=== PATIENT | female | born 1950 ===

== ENCOUNTER → 2024-10-17 | Outpatient (CLI) | payer MEDICARE, OTHER ==
[2024-10-17 14:48] LABS: BASOPHILS ABSOLUTE AUTO 0.02 K/mm3 (0.00-0.23); BASOPHILS PERCENT AUTO 0 % (0-2); EOSINOPHILS ABSOLUTE AUTO 0.07 K/mm3 (0.00-0.68); EOSINOPHILS PERCENT AUTO 1 % (0-6); Hematocrit 45.8 % (33.0-51.0); Hemoglobin 15.4 g/dL (11.5-16.0); IMMATURE GRAN ABSOLUTE AUTO 0.02 K/mm3 (0.00-0.10); IMMATURE GRAN PERCENT AUTO 0 % (0-1); LYMPHOCYTES ABSOLUTE AUTO 0.47 K/mm3 (0.84-5.20); LYMPHOCYTES PERCENT AUTO 9 % (21-46); MONOCYTES ABSOLUTE AUTO 0.52 K/mm3 (0.16-1.47); MONOCYTES PERCENT AUTO 10 % (4-13); Mean Corpuscular HGB 30.9 pg (26.0-34.0); Mean Corpuscular HGB Conc 33.6 g/dL (31.5-36.5); Mean Corpuscular Volume 92 fL (80-100); Mean Platelet Volume 8.9 fL (9.1-12.4); NEUTROPHILS PERCENT AUTO 79 % (41-73); Platelet Count 320 K/mm3 (150-400); RDW Coefficient Variation 13.7 % (11.7-14.2); RDW Standard Deviation 45.9 fL (35.1-46.3); Red Blood Cell Count 4.98 M/mm3 (3.80-5.20)
[2024-10-17 14:57] LABS: Albumin, Blood 3.1 g/dL (3.4-5.0); Albumin/Globulin Ratio 0.8 (0.8-1.8); Bilirubin, Total 1.1 mg/dL (0.1-1.0); Bun/Creatinine Ratio 15.7 (12.0-20.0); Creatinine, Blood 0.51 mg/dL (0.40-1.00); Globulin, Blood 4.1 g/dL (2.2-4.0); Potassium, Blood 4.3 mmol/L (3.5-5.5); Total Protein, Blood 7.2 g/dL (6.4-8.2)
== END ==
LOC: LAB SHORT 14:43 → LAB 14:43
PROVIDERS: Chiropractor
DX: R11.2 Nausea with vomiting, unspecified (principal)
CPT/HCPCS: 80053; 83880; 85025

== ENCOUNTER 2025-08-16 13:38 | Emergency (ER) | payer MEDICARE, OTHER ==
[~2025-08-16] VITALS: Ht 170.2 cm; Wt 113.4 kg
[~2025-08-16 13:38] MED LIST: EUTHYROX125 MC1 PO; FUROSEMIDE20 MG PO; HYDROCODONE-AC1 EA19 PO; K-Dur10 MEQ; POTASSIUM CL ER 20 M
[2025-08-16] MEDS ORDERED: Ondansetron HCl 2 MG / ML 2ML Vial IV ONE (14:15)
[2025-08-16] MEDS ORDERED: NS 1,000 ML IV SCH (14:15)
[2025-08-16 14:33] LABS: BASOPHILS ABSOLUTE AUTO 0.03 K/mm3 (0.00-0.23); BASOPHILS PERCENT AUTO 0 % (0-2); EOSINOPHILS ABSOLUTE AUTO 0.08 K/mm3 (0.00-0.68); EOSINOPHILS PERCENT AUTO 1 % (0-6); Hematocrit 42.5 % (33.0-51.0); Hemoglobin 14.6 g/dL (11.5-16.0); IMMATURE GRAN ABSOLUTE AUTO 0.01 K/mm3 (0.00-0.10); IMMATURE GRAN PERCENT AUTO 0 % (0-1); LYMPHOCYTES ABSOLUTE AUTO 1.06 K/mm3 (0.84-5.20); LYMPHOCYTES PERCENT AUTO 13 % (21-46); MONOCYTES ABSOLUTE AUTO 0.79 K/mm3 (0.16-1.47); MONOCYTES PERCENT AUTO 10 % (4-13); Mean Corpuscular HGB Conc 34.4 g/dL (31.5-36.5); Mean Corpuscular Volume 96 fL (80-100); NEUTROPHILS ABSOLUTE AUTO 6.03 K/mm3 (1.96-9.15); NEUTROPHILS PERCENT AUTO 75 % (41-73); NRBC ABSOLUTE 0.00 K/mm3 (0.00-0.02); NRBC Auto 0.0 /100 WBC (0.0-0.2); Platelet Count 369 K/mm3 (150-400); RDW Coefficient Variation 13.3 % (11.7-14.2); RDW Standard Deviation 47.1 fL (35.1-46.3)
[2025-08-16 14:54] LABS: Alanine Aminotransfer (ALT/SGP 21.0 U/L (12-78); Albumin, Blood 2.4 g/dL (3.4-5.0); Albumin/Globulin Ratio 0.6 (0.8-1.8); Anion Gap 10.0 mmol/L (3-11); Aspartate Aminotrans (AST/SGOT 27.0 U/L (12-37); Bilirubin, Total 1.1 mg/dL (0.1-1.0); Blood Urea Nitrogen 12.0 mg/dL (8-24); CO2, Blood 25.0 mmol/L (21-32); Calcium, Blood 8.7 mg/dL (8.5-10.1); Chloride, Blood 106.0 mmol/L (98-108); Creatinine, Blood 0.44 mg/dL (0.40-1.00); Globulin, Blood 3.8 g/dL (2.2-4.0); Glucose, Blood 89.0 mg/dL (70-99); Potassium, Blood 4.5 mmol/L (3.5-5.5); Sodium, Blood 136.0 mmol/L (136-145); Total Protein, Blood 6.2 g/dL (6.4-8.2)
[2025-08-16 15:09] LABS: Influenza A, PCR NEGATIVE (NEGATIVE); Influenza B, PCR NEGATIVE (NEGATIVE); Resp Syncytial Virus, PCR NEGATIVE (NEGATIVE); SARS-Cov-2 (COVID-19) PCR, MMC NEGATIVE (NEGATIVE)
[2025-08-16] MEDS ORDERED: CEPH500 PO (16:30)
[2025-08-16] MEDS ORDERED: ONDA4ODT MM (16:30)
== END 2025-08-16 17:08 | disposition home or self-care (01) ==
LOC: ER 13:38
PROVIDERS: Physician Assistant
DX: A08.4 Viral intestinal infection, unspecified (principal); L03.116 Cellulitis of left lower limb; E86.0 Dehydration; Z59.89 Other problems related to housing and economic circumstances; Z88.8 Allergy status to other drugs, medicaments and biological substances; Z79.899 Other long term (current) drug therapy; Z79.2 Long term (current) use of antibiotics
CPT/HCPCS: 71046; 80053; 85025; 87637; 96361; 96374; 99284-25; J2405; J7030

== ENCOUNTER 2025-08-24 16:24 | Emergency (ER) | payer MEDICARE, OTHER ==
[~2025-08-24] VITALS: Ht 170.2 cm; Wt 118.4 kg
[~2025-08-24 16:24] MED LIST changes: +CEPH500 PO; +ONDA4ODT MM
== END 2025-08-24 22:14 | disposition home or self-care (01) ==
LOC: ER 16:24
DX: M25.561 Pain in right knee (principal); M25.562 Pain in left knee; M25.512 Pain in left shoulder; M25.552 Pain in left hip; Z91.81 History of falling; Z88.1 Allergy status to other antibiotic agents; Z88.5 Allergy status to narcotic agent; Z88.8 Allergy status to other drugs, medicaments and biological substances; Z79.890 Hormone replacement therapy; Z79.899 Other long term (current) drug therapy
CPT/HCPCS: 70450; 71045; 73080; 73502; 73560-LT; 73560-RT; 99284-25

== ENCOUNTER 2025-09-12 10:33 | Inpatient (IN) | payer MEDICARE, OTHER ==
[~2025-09-12] VITALS: Ht 170.2 cm; Wt 119.0 kg
[2025-09-12] MEDS ORDERED: ALEN70 PO (11:14)
[2025-09-12] MEDS ORDERED: ALBU90OI INH (11:14)
[2025-09-12] MEDS ORDERED: LIDO700A20 TOP (11:16)
[2025-09-12 11:21] LABS: BASOPHILS ABSOLUTE AUTO 0.05 K/mm3 (0.00-0.23); BASOPHILS PERCENT AUTO 1 % (0-2); EOSINOPHILS ABSOLUTE AUTO 0.23 K/mm3 (0.00-0.68); EOSINOPHILS PERCENT AUTO 5 % (0-6); Hematocrit 43.7 % (33.0-51.0); Hemoglobin 14.5 g/dL (11.5-16.0); IMMATURE GRAN ABSOLUTE AUTO 0.01 K/mm3 (0.00-0.10); IMMATURE GRAN PERCENT AUTO 0 % (0-1); LYMPHOCYTES ABSOLUTE AUTO 1.06 K/mm3 (0.84-5.20); LYMPHOCYTES PERCENT AUTO 21 % (21-46); MONOCYTES ABSOLUTE AUTO 0.59 K/mm3 (0.16-1.47); MONOCYTES PERCENT AUTO 12 % (4-13); Mean Corpuscular HGB Conc 33.2 g/dL (31.5-36.5); Mean Corpuscular Volume 97 fL (80-100); NEUTROPHILS ABSOLUTE AUTO 3.16 K/mm3 (1.96-9.15); NEUTROPHILS PERCENT AUTO 62 % (41-73); NRBC ABSOLUTE 0.00 K/mm3 (0.00-0.02); NRBC Auto 0.0 /100 WBC (0.0-0.2); Platelet Count 317 K/mm3 (150-400); RDW Coefficient Variation 14.6 % (11.7-14.2); RDW Standard Deviation 52.0 fL (35.1-46.3)
[2025-09-12 11:28] LABS: Alanine Aminotransfer (ALT/SGP 27.0 U/L (12-78); Albumin, Blood 2.9 g/dL (3.4-5.0); Albumin/Globulin Ratio 0.9 (0.8-1.8); Anion Gap 9.0 mmol/L (3-11); Aspartate Aminotrans (AST/SGOT 33.0 U/L (12-37); Bilirubin, Total 1.0 mg/dL (0.1-1.0); Blood Urea Nitrogen 17.0 mg/dL (8-24); CO2, Blood 23.0 mmol/L (21-32); Calcium, Blood 8.6 mg/dL (8.5-10.1); Chloride, Blood 113.0 mmol/L (98-108); Creatinine, Blood 0.48 mg/dL (0.40-1.00); Globulin, Blood 3.4 g/dL (2.2-4.0); Glucose, Blood 85.0 mg/dL (70-99); Potassium, Blood 4.1 mmol/L (3.5-5.5); Sodium, Blood 141.0 mmol/L (136-145); Total Protein, Blood 6.3 g/dL (6.4-8.2)
[2025-09-12] MEDS ORDERED: Ondansetron HCl 2 MG / ML 2ML Vial IV PRN (13:30)
[2025-09-12] MEDS ORDERED: FLU VACC TS2025(65UP)/MF59C/PF 45 MCG/0.5 ML SYRINGE IM SCH (13:30)
[2025-09-12 14:16] LABS: CHOL/HDL RATIO 2.1; Cholesterol 148 mg/dL (50-200); HDL Cholesterol 70 mg/dL (>39); LDL/HDL RATIO 0.9; Low Density Lipoprotein Chol 64 mg/dL (0-110); Triglycerides 71 mg/dL (30-160); Very Low Density Lipoprot Chol 14 mg/dL (6-32)
[2025-09-12 14:18] LABS: Anti-Xa UFH, PHA Monitoring <0.10 IU/mL; Prothrombin Time Results 11.3 Sec (9.7-11.5)
[2025-09-12] MEDS ORDERED: Dose Adjust by Pharmacy XX STA (14:26)
[2025-09-12] MEDS ORDERED: Heparin Sodium 5000 Units/ML 1ML MDV IV ONE (14:30)
[2025-09-12] MEDS ORDERED: Heparin Sodium,Porcine/0.5 NS 500 ML IV SCH (14:30)
[2025-09-12] MEDS ORDERED: Albuterol HFA200 ACT/6.7 GM INH INH PRN (14:40)
[2025-09-12 15:18] VITALS: BP 132/91
--- NOTE | 2025-09-12 15:18 | NUR ---
ARRIVAL TO PCU patient arrived to pcu at 1510 and transfered from [facility] to pcu bed via one person missy barillas. patient is alert and oriented x4. pateint reports numbness and tingling in lower extremities. patient denies pain or chest pain/pressure or shortness of breath. patient lung sounds clear throughout. patient has +4 weeping edema in lower leg with open blister on the back of the leg. patient has +4 edema in right lower leg with blosed blisters. see admit shift assessment for further detials. home med rec complete.
[2025-09-12] MEDS ORDERED: Triamcinolone A15 G3 TOP (15:38)
[2025-09-12] MEDS ORDERED: ZINC OXIDE57 GM TOP (15:38)
--- NOTE | 2025-09-12 16:08 | NUR ---
MD IN ROOM Md Colon, printing estimator, in room to discuss plan of care with patient. the plan is to await the next trop lab and if it is similar or around the last one to turn the heparin drip off. patient is to be npo at midnight and until after the echo has been done to determine if patient needs angio or not. patient verbalized understanding.
[2025-09-12 20:04] VITALS: BP 111/59
[2025-09-12] MEDS ORDERED: Clarify Drug Order XX ONE (23:10)
[2025-09-13] VITALS (7 sets, daily range): BP systolic 100–134; BP diastolic 45–64
--- NOTE | 2025-09-13 00:49 | NUR ---
PATIENT RESTING COMFORTABLY ON RIGHT SIDE, TROPONIN TRENDING DOWN WITH VALUE OF 1499, DENIES CHEST PAIN AT CURRENT TIME. NPO AT MIDNIGHT, VERBALIZED UNDERSTANDING, ANTI XA RESULTED AT 0.47 NEW ORDER TO CONTINUE HEPARIN DRIP AT CURRENT RATE OF 25.2. HOME CPAP ORDER OBTAINED NOTIFIE RT. PATIENT BELIEVE SHE WILL DEFINITELY NEED IT AFTER THE ANGIOGRAM TOMORROW. WILL CONTINUE TO MONITOR.
--- NOTE | 2025-09-13 03:55 | NUR ---
PATIENT ADMITTED FOR SHORTNESS OF BREATH AND NSTEMI, LUNGS CLEAR, USES CPAP AT NIGHT, VERY COMPLIANT WITH IT, ALERT AND ORIENTED, CHEST PAIN THROUGH OUT THE NIGHT ON THE LEFT SIDE, BELIEVES IT WAS HE WAY SHE WAS LAYING, TROPONIN TRENDING DOWN, HEPARIN DRIP INFUSING PER ORDERS, ANTI Xa MONITORED PER PROTOCOL,NPO SINCE MIDNIGHT, EDEMA TO BILATERAL LOWER EXTERMITIES, EDUCATED TO CALL FOR NEEDS, VERBALIZED UNDERSTANDING, CALL LIGHT IN REACH, BED IN LOW AND LOCKED POSITION. WILL CONTINUE TO MONITOR
[2025-09-13 04:42] LABS: BASOPHILS ABSOLUTE AUTO 0.04 K/mm3 (0.00-0.23); BASOPHILS PERCENT AUTO 1 % (0-2); EOSINOPHILS ABSOLUTE AUTO 0.39 K/mm3 (0.00-0.68); EOSINOPHILS PERCENT AUTO 8 % (0-6); Hematocrit 39.9 % (33.0-51.0); Hemoglobin 13.2 g/dL (11.5-16.0); IMMATURE GRAN ABSOLUTE AUTO 0.01 K/mm3 (0.00-0.10); IMMATURE GRAN PERCENT AUTO 0 % (0-1); LYMPHOCYTES ABSOLUTE AUTO 1.26 K/mm3 (0.84-5.20); LYMPHOCYTES PERCENT AUTO 25 % (21-46); MONOCYTES ABSOLUTE AUTO 0.66 K/mm3 (0.16-1.47); MONOCYTES PERCENT AUTO 13 % (4-13); Mean Corpuscular HGB Conc 33.1 g/dL (31.5-36.5); Mean Corpuscular Volume 98 fL (80-100); NEUTROPHILS ABSOLUTE AUTO 2.65 K/mm3 (1.96-9.15); NEUTROPHILS PERCENT AUTO 53 % (41-73); NRBC ABSOLUTE 0.00 K/mm3 (0.00-0.02); NRBC Auto 0.0 /100 WBC (0.0-0.2); Platelet Count 281 K/mm3 (150-400); RDW Coefficient Variation 14.6 % (11.7-14.2); RDW Standard Deviation 52.5 fL (35.1-46.3)
[2025-09-13 05:03] LABS: Alanine Aminotransfer (ALT/SGP 22.0 U/L (12-78); Albumin, Blood 2.5 g/dL (3.4-5.0); Albumin/Globulin Ratio 0.9 (0.8-1.8); Anion Gap 7.0 mmol/L (3-11); Aspartate Aminotrans (AST/SGOT 24.0 U/L (12-37); Bilirubin, Total 1.2 mg/dL (0.1-1.0); Blood Urea Nitrogen 13.0 mg/dL (8-24); CO2, Blood 25.0 mmol/L (21-32); Calcium, Blood 8.4 mg/dL (8.5-10.1); Chloride, Blood 112.0 mmol/L (98-108); Creatinine, Blood 0.43 mg/dL (0.40-1.00); Globulin, Blood 2.9 g/dL (2.2-4.0); Glucose, Blood 91.0 mg/dL (70-99); Potassium, Blood 3.8 mmol/L (3.5-5.5); Sodium, Blood 140.0 mmol/L (136-145); Total Protein, Blood 5.4 g/dL (6.4-8.2)
[2025-09-13] MEDS ORDERED: Clarify Drug Order XX ONE (05:45)
--- NOTE | 2025-09-13 10:04 | NUR ---
am note this rn assumed care at 0700. vital signs stable. tele sinus rhythm. spo2 >90% on room air. patient is alert and oriented x4. neuro is intact. perrla. patient is able to make needs known and uses call light appropriately. patient reports generalized pain, and rated at 8 on numberic scale. this rn called md rodriguez and orders placed for tyelnol. patient received oral tyelnol for pain relief. patient denies chest pain/pressure or shortness of breath. patient lung sounds clear throughout. patient is able to use the bedside comode with one person assist. heparin drip is infusing per emar, see emar. see shift assessment for further detials. echo in room this am. md sheikh, cocoa bean roaster, in to see patient around 0935. md sheikh plan is to medical manage the patient at this time, review echo results, start plavix 75mg daily, and for heparin drip to run for 48 hours and then to be stopped. pharmacy notified and a nurse notification is in as well.
[2025-09-13 11:37] LABS: Magnesium, Blood 2.0 mg/dL (1.6-2.4); Thyroid Stimulating Hormone 1.12 uIU/mL (0.360-4.800)
--- NOTE | 2025-09-13 17:04 | NUR ---
shift summary see previous notes. vital signs remain stable. no acute changes this shift
[2025-09-14] MEDS ORDERED: HYDROcodone 5-APAP 325 TAB PO PRN (02:10)
[2025-09-14 04:01] VITALS: BP 111/73
[2025-09-14 04:05] LABS: BASOPHILS ABSOLUTE AUTO 0.04 K/mm3 (0.00-0.23); BASOPHILS PERCENT AUTO 1 % (0-2); EOSINOPHILS ABSOLUTE AUTO 0.36 K/mm3 (0.00-0.68); EOSINOPHILS PERCENT AUTO 8 % (0-6); Hematocrit 39.8 % (33.0-51.0); Hemoglobin 13.2 g/dL (11.5-16.0); IMMATURE GRAN ABSOLUTE AUTO 0.01 K/mm3 (0.00-0.10); IMMATURE GRAN PERCENT AUTO 0 % (0-1); LYMPHOCYTES ABSOLUTE AUTO 1.46 K/mm3 (0.84-5.20); LYMPHOCYTES PERCENT AUTO 30 % (21-46); MONOCYTES ABSOLUTE AUTO 0.68 K/mm3 (0.16-1.47); MONOCYTES PERCENT AUTO 14 % (4-13); Mean Corpuscular HGB Conc 33.2 g/dL (31.5-36.5); Mean Corpuscular Volume 97 fL (80-100); NEUTROPHILS ABSOLUTE AUTO 2.25 K/mm3 (1.96-9.15); NEUTROPHILS PERCENT AUTO 47 % (41-73); NRBC ABSOLUTE 0.00 K/mm3 (0.00-0.02); NRBC Auto 0.0 /100 WBC (0.0-0.2); Platelet Count 276 K/mm3 (150-400); RDW Coefficient Variation 14.6 % (11.7-14.2); RDW Standard Deviation 51.9 fL (35.1-46.3)
[2025-09-14 04:26] LABS: Anion Gap 9.0 mmol/L (3-11); Blood Urea Nitrogen 15.0 mg/dL (8-24); CO2, Blood 25.0 mmol/L (21-32); Calcium, Blood 8.5 mg/dL (8.5-10.1); Chloride, Blood 108.0 mmol/L (98-108); Creatinine, Blood 0.54 mg/dL (0.40-1.00); Glucose, Blood 100.0 mg/dL (70-99); Potassium, Blood 3.7 mmol/L (3.5-5.5); Sodium, Blood 138.0 mmol/L (136-145)
--- NOTE | 2025-09-14 05:57 | NUR ---
SHIFT SUMMARY Pt remains on heparin gtt for NSTEMI. C/o neck and head pain d/t arthritis and recent fall - given norco. BLE edema, improved overnight. Purewick overnight as pt's right knee also hurts d/t recent fall. Blisters/redness/eczema on BLE. No chest pain. SB-SR. BP stable.
[2025-09-14] MEDS ORDERED: Clarify Drug Order XX ONE (06:10)
[2025-09-14 08:38] VITALS: BP 123/71
[2025-09-14 11:47] VITALS: BP 136/64
[2025-09-14 16:11] VITALS: BP 120/50
[2025-09-14] MEDS ORDERED: ASPI81CH PO (17:22)
[2025-09-14] MEDS ORDERED: ATOR20 PO (17:22)
[2025-09-14] MEDS ORDERED: CLOP75 PO (17:23)
== END 2025-09-14 19:48 | disposition home health service (06) | DRG 280 ==
LOC: ER 10:33 → PCU 10:34
PROVIDERS: Family Medicine; Student in an Organized Health Care Education/Training Program; ADMIT Internal Medicine
PROC: B24BZZZ Ultrasonography of Heart with Aorta (ICD-10-PCS; principal; 2025-09-13)
DX: I21.4 Non-ST elevation (NSTEMI) myocardial infarction (principal); I50.31 Acute diastolic (congestive) heart failure; I47.19 Other supraventricular tachycardia; E03.9 Hypothyroidism, unspecified; G47.33 Obstructive sleep apnea (adult) (pediatric); M79.7 Fibromyalgia; D86.0 Sarcoidosis of lung; I48.0 Paroxysmal atrial fibrillation; M81.0 Age-related osteoporosis without current pathological fracture; R79.1 Abnormal coagulation profile; I11.0 Hypertensive heart disease with heart failure; Z88.8 Allergy status to other drugs, medicaments and biological substances; Z88.1 Allergy status to other antibiotic agents; Z88.5 Allergy status to narcotic agent; Z79.899 Other long term (current) drug therapy; Z79.890 Hormone replacement therapy
CPT/HCPCS: 36415; 71046; 71260; 80048; 80053; 80061; 83735; 83880; 84443; 84484; 85025; 85379; 85520; 85610; 85730; 93005; 93010; 93306; 94660; 94762; 96365; 96366; 97110; 97116; 97161; 99285-25; A6590; A9270; G0378; J1644; J1938; Q9967